=== PATIENT | male | born 1955 ===

== ENCOUNTER 2017-05-23 09:20 | Day surgery (SDC) | payer OTHER ==
[2017-05-27] MEDS ORDERED: ENALAPRIL MALEA10 MG PO (17:45)
== END 2017-05-23 15:00 | disposition home or self-care (01) ==
LOC: AMB-ENDOS 09:20
DX: D12.3 Benign neoplasm of transverse colon (principal); D12.8 Benign neoplasm of rectum; K57.30 Diverticulosis of large intestine without perforation or abscess without bleeding; K64.8 Other hemorrhoids

== ENCOUNTER → 2017-05-27 | Emergency (ER) | payer OTHER ==
[~2017-05-27] VITALS: Ht 170.2 cm; Wt 70.3 kg
[~2017-05-27] MED LIST: ENALAPRIL MALEA10 MG PO
== END | disposition home or self-care (01) ==
LOC: ER 17:31
DX: K62.5 Hemorrhage of anus and rectum (principal)